=== PATIENT | male | born 1965 | race African-American/Black ===

== ENCOUNTER 2022-12-23 17:28 | Emergency (ER) | payer OTHER ==
[~2022-12-23] VITALS: Ht 180.3 cm; Wt 91.0 kg
[2022-12-23] MEDS ORDERED: CLONIDINE 0.2MG TABLET PO ONE (18:15)
[2022-12-23] MEDS ORDERED: NITROGLYCERIN 0.4MG TABLET SL SL PRN (18:15)
[2022-12-23] MEDS ORDERED: ASPIRIN 81MG TABLET PO ONE (18:15)
[2022-12-23] MEDS ORDERED: ACETAMINOPHEN 325MG TABLET PO ONE (18:30)
[2022-12-23] MEDS ORDERED: HYDRALAZINE HCL 50MG TABLET PO ONE (18:30)
[2022-12-23 18:58] LABS: BASOPHILS % 0.5 % (0.0-2.0); EOSINOPHILS % 1.3 % (0.0-5.0); HEMATOCRIT. 47.8 % (42.0-52.0); HEMOGLOBIN. 16.7 g/dL (14.0-18.0); LYMPHOCYTES % 14.7 % (20.0-50.0); MEAN CORPUSCULAR HEMOGLOBIN 33.6 pg (28.0-32.0); MEAN CORPUSCULAR VOLUME 96.5 fL (80.0-94.0); MEAN PLATELET VOLUME 7.1 fl (7.4-10.4); MONOCYTES % 8.3 % (2.0-8.0); NEUTROPHILS % 75.2 % (40.0-76.0); PLATELET 209 x1000/uL (130-400); RED BLOOD CELL COUNT 4.95 mill/uL (4.7-6.1); RED CELL DISTRIBUTION WIDTH 13.7 % (11.6-14.6)
[2022-12-23 19:22] LABS: CHLORIDE 104 mEq/L (98-107)
[2022-12-23 20:50] VITALS: BP 152/83
[2022-12-23] MEDS ORDERED: HYDR25TA MT (21:13)
== END 2022-12-23 21:41 ==
LOC: ER 17:28
DX: R51.9 Headache, unspecified (principal); R07.89 Other chest pain; R06.02 Shortness of breath; I10 Essential (primary) hypertension; R56.9 Unspecified convulsions
CPT/HCPCS: 36415; 71045; 80053; 83880; 84484; 85025; 93005; 99285; Z7610

== ENCOUNTER 2025-01-17 00:05 | Emergency (ER) | payer MEDICAID, OTHER ==
[~2025-01-17] VITALS: Ht 180.3 cm; Wt 100.0 kg
[~2025-01-17 00:05] MED LIST: HYDR25TA MT
[2025-01-17 00:09] VITALS: TEMP 36.6; O2SAT 98
[2025-01-17 01:30] LABS: CHLORIDE 104 mEq/L (98-107); POTASSIUM 3.3 mEq/L (3.5-5.1); SODIUM 143 mEq/L (136-145)
[2025-01-17 01:31] LABS: CALCIUM 9.1 mg/dL (8.7-10.4); CARBON DIOXIDE 29 mEq/L (21-32)
[2025-01-17 01:36] LABS: GLUCOSE 89 mg/dL (70-105); UREA NITROGEN BLOOD 11 mg/dL (9-23)
[2025-01-17 01:47] LABS: BASOPHILS % 0.7 % (0.0-2.0); EOSINOPHILS % 1.3 % (0.0-5.0); HEMATOCRIT. 45.2 % (42.0-52.0); HEMOGLOBIN. 14.8 g/dL (14.0-18.0); LYMPHOCYTES % 27.8 % (20.0-50.0); MEAN CORPUSCULAR HEMOGLOBIN 31.1 pg (28.0-32.0); MEAN CORPUSCULAR HGB CONC 32.7 g/dL (31.0-37.0); MEAN CORPUSCULAR VOLUME 95.1 fL (80.0-94.0); MEAN PLATELET VOLUME 6.8 fl (7.4-10.4); MONOCYTES % 8.1 % (2.0-8.0); NEUTROPHILS % 62.1 % (40.0-76.0); PLATELET 257 x1000/uL (130-400); RED BLOOD CELL COUNT 4.75 mill/uL (4.7-6.1); RED CELL DISTRIBUTION WIDTH 14.2 % (11.6-14.6); WHITE BLOOD COUNT 7.1 x1000/uL (4.5-11.0)
[2025-01-17] MEDS ORDERED: ASPI-986 MT (02:19)
[2025-01-17 03:10] VITALS: BP 160/90; PULSE 72; RESP 20; O2SAT 98
== END 2025-01-17 03:13 | disposition home or self-care (01) ==
LOC: ER 00:05
DX: I63.81 Other cerebral infarction due to occlusion or stenosis of small artery (principal); F17.200 Nicotine dependence, unspecified, uncomplicated; I10 Essential (primary) hypertension; Z79.899 Other long term (current) drug therapy; Z86.73 Personal history of transient ischemic attack (TIA), and cerebral infarction without residual deficits
CPT/HCPCS: 36415; 71045; 80048; 82962; 85025; 99284

== ENCOUNTER 2025-01-17 04:20 | Emergency (ER) | payer MEDICAID, OTHER ==
[~2025-01-17] VITALS: Ht 180.3 cm; Wt 100.0 kg
[~2025-01-17 04:20] MED LIST changes: +ASPI-986 MT
[2025-01-17 04:30] VITALS: O2SAT 98
[2025-01-17 04:45] VITALS: BP 154/68; PULSE 81; RESP 16; TEMP 37; O2SAT 100
== END 2025-01-17 08:16 | disposition home or self-care (01) ==
LOC: ER 04:20
DX: M54.9 Dorsalgia, unspecified (principal); I10 Essential (primary) hypertension; F12.90 Cannabis use, unspecified, uncomplicated; F15.90 Other stimulant use, unspecified, uncomplicated; Z79.899 Other long term (current) drug therapy; Z86.73 Personal history of transient ischemic attack (TIA), and cerebral infarction without residual deficits
CPT/HCPCS: 99281

== ENCOUNTER 2025-01-21 00:47 | Emergency (ER) | payer MEDICAID ==
[~2025-01-21] VITALS: Ht 180.3 cm; Wt 99.0 kg
[2025-01-21 01:17] VITALS: O2SAT 97
[2025-01-21] MEDS: KETOROLAC 30MG/ML VIAL IM ONE (03:26)
[2025-01-21 03:28] VITALS: BP 158/79; PULSE 87; RESP 16; TEMP 37; O2SAT 97
== END 2025-01-21 03:29 | disposition home or self-care (01) ==
LOC: ER 00:47
DX: M54.6 Pain in thoracic spine (principal); M25.512 Pain in left shoulder; M25.511 Pain in right shoulder; F12.10 Cannabis abuse, uncomplicated; F15.10 Other stimulant abuse, uncomplicated; I10 Essential (primary) hypertension; Z79.82 Long term (current) use of aspirin; Z98.890 Other specified postprocedural states; Z86.59 Personal history of other mental and behavioral disorders; Z86.73 Personal history of transient ischemic attack (TIA), and cerebral infarction without residual deficits
CPT/HCPCS: 99283; 96372; J1885